=== PATIENT | male | born 1965 | race Caucasian/White ===

== ENCOUNTER 2018-08-11 11:18 | Outpatient (REF) | payer BC, SELFPAY ==
[2018-08-11 18:50] LABS: Cholesterol 203 mg/dL (50-200); Glucose 105 mg/dL (70-100); HDL Cholesterol 48 mg/dL (40-60); LDL CHOLESTEROL 137 mg/dL (<100); Triglyceride 63 mg/dL (30-150)
== END 2018-08-11 11:38 ==
LOC: NCHCN 11:18
PROVIDERS: PCP Nurse Practitioner; Visit Provider Nurse Practitioner
DX: Z13.1 Encounter for screening for diabetes mellitus (principal); Z13.220 Encounter for screening for lipoid disorders
CPT/HCPCS: 80061; 82947; 83721

== ENCOUNTER 2018-10-27 11:08 | Day surgery (SDC) | payer BC, SELFPAY ==
--- NOTE | 2018-10-27 06:59 | W.COLOREPORT ---
Date of service: 10/27/18 Time of Service: 12:58 Colonoscopy Report Date of procedure: 10/27/18 Pre-op diagnosis general: Colon Cancer Screening Post-op diagnosis procedure note: other (Multiple colorectal polyps and mild diverticulosis) Procedure: Colonoscopy with polypectomy by hot snare and hot forceps Surgeon: Dawna Calderón Anesthesia proc note operative: other (General/ ASA 2/Gabriel Harris, ROEL ) Estimated blood loss (mL): 20 Pathology: other (Cecal polyp, ascending colon polyp x6, Hepatic flexure, Transverse colon, Sigmoid and rectum) Complications: None Disposition: same day Indications: Mr. Duncan is a pleasant 52 year old male who was seen in the office for a screening colonoscopy. This will be his first. Risks, benefits and complications have been reviewed. Complications include but are not limited to bleeding, pain, perforation, missed small lesion/polyp, sore throat, aspiration and adverse reaction to the medications. Questions were entertained and answered to their satisfaction and they wished to proceed. No guarantees were given or implied. Prep: Miralax/Dulcolax Procedure Start Time: 12:58 Procedure End Time: 14:22 Retraction Time: 60 Findings: 12 polyps 3 where large and may have cancer in them. Polyps removed with a combination of hot snare and hot forceps Procedure Description: After informed consent was obtained the patient was taken to the procedure room and placed in a left decubitous position. Monitors were applied and a time out was done. The patients name, date of , procedure, allergies to medications and metal in their body was reviewed. The patient was then sedated. Once sedated and comfortable a rectal exam was done. External exam was normal. Internal exam revealed a normal sphincter tone and no palpable masses. The prostate was smooth and normal sized. The scope was then introduced and retro-flexed. No internal hemorrhoids were identified. The scope was then advanced to the cecum without difficulty. The TI and appendiceal orifice were identified. The prep was good. The scope was then slowly retracted over 60 minutes back into the rectum. Polyps were removed with a hot snare in the ascending colon x6, cecum x1, hepatic flexure x1, Transverse colon X1, and Sigmoid colon polyp x1, and a hot forceps was used to remove a rectal polyp. The scope was removed and the patient was woken up and taken back to Same day surgery in stable condition. There was also some mild diverticulosis noted. The patient tolerated the procedure well and there were no immediate complications. Follow up: Follow up will depend on the final pathology
--- NOTE | 2018-10-27 07:01 | W.PM.DSUDISC ---
Discharge Plan Disposition Patient Disposition: HOME Condition: Good Discharge Details Reason For Visit: Colon Cancer Screening Attending Provider: Dawna Calderón Primary Care Provider: Xi Elena Home Meds and New Rx's Prescriptions: Discontinued polyethylene glycol 3350 17 gram/dose powder 238 g PO ONCE Qty: 238 RF: 0 bisacodyl [Dulcolax (bisacodyl)] 5 mg tablet,delayed release (DR/EC) 5 mg PO ONCE Qty: 4 RF: 0 No Action No Known Home Meds RF: 0 Discharge Instructions Instructions: Colonoscopy (DC), Colorectal Polyps (DC) Additional Instructions: Findings: 12 polyps A few of them big and potentially colon cancer Follow up: I will call you with the results and then we will see what the next step is Please call if you develop: fevers >101.5 Nausea or Vomiting Abdominal pain that is not transient DAY SURGERY UNIT POST COLONOSCOPY INSTRUCTIONS 1. Because there will be medication in your system for the next 24 hours, you may feel a little sleepy. Your coordination will be affected. Therefore: a. Do not drive or operate dangerous equipment for 24 hours. b. Do not drink alcohol beverages for 24 hours (not even beer). c. Plan to go home and rest for the day. 2. Generally there are no restrictions on your activity after a day or so has gone by, but you may feel a bit fatigued for a few days. 3 After you arrive home you may have a light meal and return to a normal diet as you can tolerate it without feeling sick to your stomach. 4. After surgery, you may feel pain or discomfort. This should be only transient, but if it persists please contact your doctor. 5. If there are any questions regarding the findings of your procedure, please feel free to contact your doctor. 6. If you are unable to contact your doctor with a problem, contact the hospital at [phone]. 7. Continue all your regular medications unless directed otherwise. I understand the above instructions and have no questions. Signature of Patient or Responsible Adult Escort Date/Time Name of Responsible Adult Escort Signature of Nurse Date/Time Activity:: Activity as Tolerated Diet:: As Tolerated Discharge Orders Discharge Orders: Discharge Order (Routine); Ordered 10/27/18 Ordered By: Dawna Calderón DS: Diagnosis Discharge Diagnosis (1) S/P colonoscopy: Status: Acute (2) Colorectal polyps: Status: Acute
[2018-10-27 11:23] VITALS: BP 140/88; PULSE 71; RESP 16; TEMP 36.6; O2SAT 95
[2018-10-27] MEDS: Lactated Ringers 1,000 ML 80 ML IV (12:07)
--- NOTE | 2018-10-27 13:01 | BOWEL_PTH ---
PATIENT: Al Duncan LOC: [facility] U#:[id number] AGE/SX: 52/M ROOM: RE10/27/[address]: Dawna Calderón MD : [id number] BED: DIS: 10/27/2018 SPEC #: [id number] RECD: 10/27/18 18:22 STATUS: [facility] #: [id number] LAURA: 10/27/18 13:[address]: Dawna Calderón DEPT: Surgical Specimen RECD BY: Karen Mo ENTERED: 10/27/18 18:28 SP TYPE: Bowel OTHR DR: Xi Elena Tissues: 1 - BIOPSY BOWEL 2 - BIOPSY BOWEL 3 - BIOPSY BOWEL 4 - BIOPSY BOWEL 5 - BIOPSY BOWEL 6 - BIOPSY BOWEL 7 - BIOPSY BOWEL 8 - BIOPSY BOWEL 9 - BIOPSY BOWEL Procedures: GROSS AND MICRO LEVEL 4 Comments: [id number]
[2018-10-27] MEDS: Endoscopic Tattoo 5 ML SYR IJ (13:29)
[2018-10-27 15:09] VITALS: BP 139/95; PULSE 62; RESP 16; TEMP 35.8; O2SAT 96
== END 2018-10-27 15:15 | disposition home or self-care (01) ==
LOC: SUR 11:08
PROVIDERS: PCP Nurse Practitioner; Visit Provider Surgery
PROC: 0DJD8ZZ Inspection of Lower Intestinal Tract, Via Natural or Artificial Opening Endoscopic (ICD-10-PCS; CPT 45378; principal; 2018-10-27 12:30)
DX: Z12.11 Encounter for screening for malignant neoplasm of colon (principal); D12.5 Benign neoplasm of sigmoid colon; D12.0 Benign neoplasm of cecum; D12.2 Benign neoplasm of ascending colon; D12.3 Benign neoplasm of transverse colon; D12.8 Benign neoplasm of rectum; K62.1 Rectal polyp
CPT/HCPCS: 45385; 45384; 88305

== ENCOUNTER 2019-02-10 16:22 | Outpatient (CLI) | payer BC, SELFPAY ==
[2019-02-10 18:27] LABS: Ferritin 32 ng/mL (8-388); Folate 14.2 ng/mL (8.6-20.0); Vitamin B12 408 pg/mL (193-986)
== END 2019-02-10 16:42 ==
PROVIDERS: PCP Nurse Practitioner; Visit Provider Internal Medicine Gastroenterology
DX: K51.211 Ulcerative (chronic) proctitis with rectal bleeding (principal); K62.5 Hemorrhage of anus and rectum
CPT/HCPCS: 36415; 82607; 82728; 82746

== ENCOUNTER 2022-01-09 16:07 | Outpatient (REF) | payer OTHER, SELFPAY ==
[2022-01-09 20:30] LABS: HCT 35.7 % (40.0-50.0); HGB 12.1 g/dL (13.5-17.5); MCH 29.7 pg (27.0-33.0); MCHC 33.9 % (32.0-36.0); MCV 88 fL (80-95); MPV 10.5 fL (8.0-11.0); Platelet Count 304 10^3/uL (130-400); RBC 4.08 10^6/uL (4.36-5.78); RDW 13.8 % (11.8-14.1); RDW-SD 44.5 fL; WBC 5.27 10^3/uL (4.4-10.8)
[2022-01-09 20:38] LABS: Iron 37 ug/dL (65-175); Total Iron Binding Capacity 365 ug/dL (250-450); Transferrin Sat 10 % (20-55)
[2022-01-09 20:44] LABS: Hemoglobin A1C 5.9 % (<5.7)
[2022-01-09 20:49] LABS: Calculated LDL 145 mg/dL (<100); Cholesterol 215 mg/dL (<200); HDL Cholesterol 47 mg/dL (40-60); Triglyceride 115 mg/dL (<150)
[2022-01-11 10:04] LABS: Hepatitis C Ab w Rflx HCV PCR Negative (Negative)
== END 2022-01-09 16:08 | disposition home or self-care (01) ==
LOC: NCHCN 16:07
PROVIDERS: PCP Nurse Practitioner; Visit Provider Family Medicine
DX: R53.83 Other fatigue (principal); Z00.00 Encounter for general adult medical examination without abnormal findings; K64.8 Other hemorrhoids; Z11.59 Encounter for screening for other viral diseases
CPT/HCPCS: 80061; 85027; 86803; 83036; 83540; 83550; 84443

== ENCOUNTER 2023-01-28 16:41 | Outpatient (REF) | payer OTHER, SELFPAY ==
[2023-01-28 20:26] LABS: Abs Immature Grans 0.02 10^3/uL (0.0-0.06); Absolute Basophil Count 0.07 10^3/uL (0.0-0.2); Absolute Eosinophil Count 0.14 10^3/uL (0.0-0.7); Absolute Monocyte Count 0.37 10^3/uL (0.1-0.8); Absolute Neutrophil Count 5.86 10^3/uL (1.2-6.7); Basophils % 0.9; Eosinophils % 1.8; HCT 38.1 % (40.0-50.0); Immature Grans % 0.3; Lymphocytes % 18.8; MCHC 34.1 % (32.0-36.0); MCV 91 fL (80-95); MPV 10.6 fL (8.0-11.0); Monocytes % 4.6; Neutrophils % 73.6; Platelet Count 319 10^3/uL (130-400); RDW 13.1 % (11.8-14.1); RDW-SD 43.3 fL; WBC 7.96 10^3/uL (4.4-10.8)
[2023-01-28 20:58] LABS: ALT 20 U/L (16-63); AST 12 U/L (15-37); Albumin 4.2 g/dL (3.4-5.0); Alkaline Phosphatase 70 U/L (46-116); Anion Gap 10.8 mmol/L (3-11); BUN 16 mg/dL (7-18); Bilirubin, Total 0.4 mg/dL (0.2-1.0); CO2 25.2 mmol/L (21.0-32.0); Calcium 9.2 mg/dL (8.5-10.1); Chloride 105 mmol/L (98-107); Estimated GFR 87.78 (mL/min/1.73m2); Glucose 93 mg/dL (74-106); Potassium 4.2 mmol/L (3.5-5.1); Sodium 141 mmol/L (136-145); TSH (W/Ref FT4) 1.31 uIU/mL (0.36-3.74); Total Protein 7.3 g/dL (6.4-8.2)
[2023-01-28 21:14] LABS: Hemoglobin A1C 5.7 % (<5.7)
[2023-01-28 21:54] LABS: Iron 64 ug/dL (65-175); Total Iron Binding Capacity 312 ug/dL (250-450); Transferrin Sat 21 % (20-55)
== END 2023-01-28 16:42 | disposition home or self-care (01) ==
LOC: NCHCN 16:41
PROVIDERS: PCP Nurse Practitioner Family; Visit Provider Family Medicine
DX: R63.4 Abnormal weight loss (principal); R73.03 Prediabetes; D50.9 Iron deficiency anemia, unspecified
CPT/HCPCS: 80053; 83036; 83540; 83550; 84443; 85025

== ENCOUNTER 2023-03-01 07:17 | Day surgery (SDC) | payer OTHER, SELFPAY ==
--- NOTE | 2023-02-28 19:47 | W.PM.DSUDISC ---
Date of service: 03/01/23 Time of Service: 10:00 Discharge Plan Disposition Patient Disposition: Home Condition: Good Discharge Details Reason For Visit: Right inguinal hernia repair Attending Provider: Niko Zafar Primary Care Provider: Al Esteves Home Meds and New Rx's Prescriptions: New tramadol 100 mg tablet 100 mg PO TID PRNQty: 12 0RF Rx Instructions: Take half or 1 full tab up to every 8 hours if needed for severe pain. Do not drive while using this medication. I suggest half a tablet to start since this medication can be a bit strong. Continued psyllium husk 0.52 gram capsule 1.04 g PO DAILY ferrous gluconate 324 mg (37.5 mg iron) tablet 324 mg PO .qod Discharge Instructions Instructions: Inguinal Hernia Repair (DC) Additional Instructions: Al, we were able to fix your hernia today without much difficulty. Like we talked about beforehand, I did implant a permanent mesh to help reduce the chances that this hernia will come back. There can be quite a bit of bruising after inguinal hernia repairs. Please do not be alarmed if that occurs. I recommend alternating Tylenol and ibuprofen to help with pain control in the coming days. I have also provided a prescription for tramadol in the case that the Tylenol and ibuprofen are insufficient. Heating pads and ice packs can also be used at your discretion. You can remove the bandages tomorrow night, and shower with warm soapy water. Please inspect the incision every day. Please let me know if there are any signs of increasing redness, or concerning discharge from the wound. I would like you to restrict her lifting to less than 10 pounds until I see you in the office on the . If you have any questions in the meantime, please do not hesitate to call me at any time. Referrals: Niko Zafar MD [ [facility] STAFF PHYSICIAN] - (March 20) Activity:: No heavy lifting Remove Dressings/Wound Care:: 24 hours Shower/Bathe:: 24 hours Diet:: As Tolerated Discharge Orders Discharge Orders: Discharge Order (Routine); Ordered 02/28/23 Ordered By: Niko Zafar DS: Diagnosis Discharge Diagnosis (1) Right inguinal hernia: Status: Acute Asessment and Plan: Open inguinal herniorrhaphy with mesh Follow-up in my office for outpatient follow-up
--- NOTE | 2023-02-28 19:49 | W.PM.OP ---
Date of service: 03/01/23 Time of Service: 10:08 Operative Note Operative Note DATE OF PROCEDURE: 03/01/23 PRE-OP DIAGNOSIS: Right inguinal hernia PROCEDURE: Open right inguinal hernia repair with mesh SURGEON: Niko Zafar FAMILY PRESERVATION WORKER: Alannah Ramirez ANESTHESIA TYPE: Local By Surgeon and General:No Airway Refer to Anesthesia Record ESTIMATED BLOOD LOSS: 25 PATHOLOGY: none sent COMPLICATIONS: None Patient was transported to: PACU Patient's condition: stable Implants: Large PerFix mesh plug and patch Indications: Al is a 57-year-old male with a right inguinal hernia that has enlarged in size, and become painful. Procedure Description: I began by confirming the correct site with the patient. Next, after induction of general anesthesia, the anesthesia specialist provided real-time ultrasound guided tap block. The surgical site was then prepped and draped in the usual fashion. I began by making an oblique incision over the right inguinal region. I dissected down through the skin to the deep fascia. Next, I incised the fascia along the length of the inguinal canal to the external ring. I then carefully identified the ilioinguinal nerve and sharply divided. Once this was complete, I bluntly dissected the shelving edge of the inguinal ligament down towards the pubic tubercle. Here, I encircled all cord structures with a Philo drain. Next, I began dissecting the specific cord structures. Great care was taken to spare the vas deferens and the blood supply to the testicle. Next, I isolated the hernia sac from the other inguinal structures. I reduced it back to its normal anatomic position. I then used a large mesh plug to obliterate the defect at the internal ring. I fixed in place with interrupted Prolene stitches. Next, I buttressed the posterior floor of the inguinal canal with a large mesh patch. I started by fixing it to the pubic tubercle. Next, I used Prolene sutures to affix it to the shelving edge of the inguinal ligament and the conjoined tendon. Laterally I tacked it to the external oblique fascia and reconstructed an internal ring without any strain on the cord structures. Once this was complete, I irrigated the surgical field. It appeared hemostatic. I then closed the anterior portion of the fascia to reconstruct the front wall of the inguinal canal. I did this with interrupted Vicryl stitches. Once again, I irrigated the surgical field and inspected for hemostasis. Finally, I approximated the superficial fascia and the deep layers of the skin with absorbable suture. Skin was closed with running subcuticular stitches. Bandages were applied, the patient was awakened and transferred to the recovery unit.
[2023-03-01] VITALS (8 sets, daily range): BP systolic 145–177; BP diastolic 78–97; PULSE 43–55; RESP 15–21; TEMP 36.2–36.7; O2SAT 95–100; BMI 23.8
[2023-03-01] MEDS: Celecoxib 200 MG CAP PO (08:05)
[2023-03-01] MEDS: Gabapentin 300 MG CAP 600 MG PO (08:06)
[2023-03-01] MEDS: Acetaminophen 500 MG TAB 1000 MG PO (08:06)
[2023-03-01] MEDS: Lactated Ringers 1,000 ML 80 ML IV (08:25)
--- NOTE | 2023-03-01 08:26 | W.ANESPRE ---
General Info Date of Service Date Performed: 03/01/23 Height: 6 ft 1 in Weight: 81.9 kg Body Mass Index (BMI): 23.8 Surgical Procedure: Operation Date: 03/01/23 09:10 Proposed Procedure Side Surgeon p Herniorrhaphy Inguinal w/Mesh Right Niko Zafar MD Meds Allergies and Home Medications Allergies Allergy/AdvReac Type Severity Reaction Status Date / Time No Known Allergies Allergy Unverified 03/01/23 08:18 Home Medication Medication Instructions Recorded ferrous gluconate 324 mg (37.5 mg 324 mg PO .qod 02/05/23 iron) tablet psyllium husk 0.52 gram capsule 1.04 g PO DAILY 02/05/23 Current Visit Medications: Current Medications Generic Name Dose Route Start Last Admin Trade Name Freq PRN Reason Stop Dose Admin Acetaminophen 1,000 mg 03/01/23 06:00 03/01/23 08:06 Acetaminophen 500 Mg Tab PO 03/01/23 23:59 1,000 mg PREOP FRANCIA Administration Celecoxib 200 mg 03/01/23 06:00 03/01/23 08:05 Celecoxib 200 Mg Cap PO 03/01/23 23:59 200 mg PREOP FRANCIA Administration Gabapentin 600 mg 03/01/23 06:00 03/01/23 08:06 Gabapentin 300 Mg Cap PO 03/01/23 23:59 600 mg PREOP FRANCIA Administration Ringer's Solution 1,000 mls @ 80 mls/hr 03/01/23 06:00 IV 03/01/23 23:59 INFUSION FRANCIA Cefazolin Sodium/Dextrose 2 gm in 50 mls @ 100 mls/hr 03/01/23 06:00 Ancef Duplex IVPB 03/01/23 23:59 PREOP FRANCIA IV Miscellaneous Supplies 1 each 03/01/23 06:00 Iv Access IV 03/01/23 23:59 DIRECTED FRANCIA Morphine Sulfate 2 mg 02/28/23 19:50 Morphine 4 Mg/Ml Syr IVP 03/30/23 19:49 Q1H PRN PRN Sodium Chloride 0 ml 03/01/23 06:00 Normal Saline Flush 10 Ml Syr IV 03/01/23 23:59 PRN PRN Sodium Chloride 0 ml 03/01/23 06:00 Normal Saline 10 Ml Vial IJ 03/01/23 23:59 DIRECTED PRN Sterile Water 0 ml 03/01/23 06:00 Water,Injection,Sterile 10 Ml Vial IJ 03/01/23 23:59 DIRECTED PRN Tramadol HCl 50 mg 02/28/23 19:50 Tramadol 50 Mg Tab PO 03/30/23 19:49 Q6H PRN PRN Pain PFSH Active Problems Active Problems: Problem Status Onset Code Bleeding internal hemorrhoids K64.8 Prediabetes R73.03 Hyperlipidemia E78.5 Abnormal weight loss R63.4 Right inguinal hernia K40.90 Colorectal polyps K63.5 S/P colonoscopy ~10/27/18 Z98.890 Medical History Medical History Tubulovillous adenoma of colon Dystonia of left hand Surgical History Surgical History S/P total left hip arthroplasty Status post hip replacement Right and Left Hx of arthroscopy Right knee Tobacco Smoking/Tobacco Use Status: Current every day Tobacco Type: e-cigarettes Alcohol Alcohol Intake: never Substance Use Substance use: Daily Substance use type: marijuana Details: Vapes and smokes Vital Signs and Lab Results Vital Signs Most Recent Vital Signs in EMR: Most Recent Vital Signs Temp Pulse Resp BP Pulse Ox 36.7 C 55 L 18 145/78 H 97 03/01/23 07:25 03/01/23 07:25 03/01/23 07:25 03/01/23 07:25 03/01/23 07:25 Lab Results Blood Type / Crossmatch: No Data to Display Complete Blood Count: No Data to Display Complete Metabolic Panel: No Data to Display Liver Function Panel: No Data to Display Coagulation Panel: No Data to Display Cardiac Panel: No Data to Display Arterial Blood Gas: No Data to Display Venous Blood Gas: No Data to Display Pancreas Panel: No Data to Display Thyroid Panel: No Data to Display Infectious Disease: No Data to Display Blood Cultures: No Data to Display Toxicology Panel: No Data to Display Anesthesia Assessment and Plan Anesthesia History Personal History: No History of Anesthesia Complications Family History: No Family History of Anesthesia Complications Exercise Tolerance Exercise Tolerance: Metabolic Equivalents>4 Pertinent Negatives Pertinent Negatives: No Symptoms of GERD, No Major Cardiovascular Symptoms or Complaints, No Major Pulmonary Symptoms or Complaints and No History of CVA/TIA Cardiac & Pulmonary Exam Cardiac Exam: Normal S1/S2 Heart Sounds Pulmonary Exam: Clear Bilateral Breath Sounds Implantable Cardiac Device Does patient have a Pacemaker or an ICD?: No Airway Exam Known Difficult Airway: No Mallampati Class: 2 Mouth Opening: Normal (> 3cm) Thyromental Distance: Greater than 3 cm Neck Range of Motion: Full ROM Neck Circumference: Normal Teeth Condition: Normal Dentition ASA Classification ASA Score: ASA 2 Emergency Case?: No NPO Status NPO Status: NPO Clears >2 hours, Solids >8 hours Anesthesia Plan Resuscitation Status: Full Code Anesthesia Technique: General Anesthesia Airway Planned: LMA Pain Management: Surgeon and patient request nerve block Monitors Used: Standard Monitors
[2023-03-01] MEDS: ceFAZolin 2 GM/50 ML BAG IVPB (08:51)
[2023-03-01] MEDS: Bupivacaine 0.25% Pres-Free 30 ML VIAL (09:19)
--- NOTE | 2023-03-01 09:21 | W.ANESNERVE ---
Nerve Block Single Injection Procedure Date and Time Date Performed: 03/01/23 Procedure Start: :02 Location Where Procedure Performed Procedure Location: Operating Room Procedure Stop: :08 Reason Performed: Postoperative Analgesia Requesting Provider: Niko Zafar Timeout Performed Timeout Performed: Yes Monitoring Used ECG, Blood Pressure, SpO2, ETCO2 and See EMR for corresponding vital signs Sterility Sterility: Hand Hygiene, Surgical Cap, Surgical Mask, Sterile Gloves, Sterile Drape/Sheet and Chlorhexidine Sedation Given During Procedure Sedation Given (Indicate Dose Given): No Sedation given Patient Mental Status Patient Mental Status: Performed under general anesthesia Nerve Block 1st Nerve Block: Laterality: Right Block Type: TAP Unilateral Ultrasound Image Saved?: Yes Needle / Catheter Used: 100mm SonoPlex II Local Anesthetic Bolus (Indicate Dose Given): Injected in 3-5ml increments after negative blood aspiration and Bupivacaine 0.25% Dose:: 20 ml Additives (Indicate Dose Given): None Ultrasound: Sterile probe cover and gel used Nerve Stimulator: Not Used Paresthesia: None Procedure Tolerated: No Complications Procedure Outcome: Successful Performed By: Lorraine Penny
[2023-03-01] MEDS: traMADol 50 MG TAB PO (11:40)
--- NOTE | 2023-03-01 11:50 | W.ANESPOSTOP ---
Postoperative Evaluation Date, Time and Location Date Performed: 03/01/23 Time Performed: 11:50 Patient Location: Day Surgery Unit Vital Signs Most Recent Imported Vital Signs: Most Recent Vital Signs Temp Pulse Resp BP Pulse Ox 36.2 C L 53 L 18 162/97 H 100 03/01/23 11:00 03/01/23 11:00 03/01/23 11:00 03/01/23 10:45 03/01/23 11:00 Pain Score Most Recent Pain Score: Most Recent Pain Score Pain Level 0 03/01/23 11:00 Assessment Mental Status: Awake (Alert & Oriented to Patient Baseline) Airway and Respiratory Function: Patent airway with normal (patient baseline) respiratory exam Cardiovascular Function: Hemodynamically Stable Hydration Status: Adequately Hydrated Nausea & Vomiting: No Nausea or Vomiting Pain: Pain is tolerable per patient Peripheral Nerve Block: Regional nerve block not resolved at time of post operative discharge
== END 2023-03-01 12:20 | disposition home or self-care (01) ==
PROVIDERS: PCP Family Medicine; Visit Provider Surgery
PROC: (CPT 49505; principal; 2023-03-01 09:00)
DX: K40.90 Unilateral inguinal hernia, without obstruction or gangrene, not specified as recurrent (principal); F17.290 Nicotine dependence, other tobacco product, uncomplicated; F12.90 Cannabis use, unspecified, uncomplicated
CPT/HCPCS: 49505; 76942; C1781; J0690; J1100; J2001; J2405; J2704

== ENCOUNTER 2024-04-24 13:04 | Outpatient (REF) | payer BC, SELFPAY ==
[2024-04-24 15:32] LABS: Abs Immature Grans 0.01 10^3/uL (0.0-0.06); Absolute Basophil Count 0.08 10^3/uL (0.0-0.2); Absolute Eosinophil Count 0.19 10^3/uL (0.0-0.7); Absolute Lymphocyte Count 1.35 10^3/uL (1.2-3.4); Absolute Monocyte Count 0.28 10^3/uL (0.1-0.8); Absolute Neutrophil Count 4.47 10^3/uL (1.2-6.7); Basophils % 1.3 %; HCT 38.1 % (40.0-50.0); HGB 13.3 g/dL (13.5-17.5); Immature Grans % 0.2 %; Lymphocytes % 21.2 %; MCH 31.8 pg (27.0-33.0); MCHC 34.9 % (32.0-36.0); MCV 91 fL (80-95); MPV 10.2 fL (8.0-11.0); Monocytes % 4.4 %; Neutrophils % 69.9 %; Platelet Count 265 10^3/uL (130-400); RBC 4.18 10^6/uL (4.36-5.78); RDW 13.2 % (11.8-14.1); RDW-SD 44.4 fL; WBC 6.38 10^3/uL (4.4-10.8)
[2024-04-24 15:43] LABS: Iron 51 ug/dL (65-175); Total Iron Binding Capacity 312 ug/dL (250-450); Transferrin Sat 16 % (20-55)
[2024-04-24 15:57] LABS: Ferritin 34 ng/mL (26-388)
== END 2024-04-24 13:05 | disposition home or self-care (01) ==
LOC: NCHCN 13:04
PROVIDERS: PCP Family Medicine; Visit Provider Student in an Organized Health Care Education/Training Program
DX: D64.9 Anemia, unspecified (principal)
CPT/HCPCS: 82728; 83540; 83550; 85025

== ENCOUNTER 2024-10-13 15:30 | Outpatient (REF) | payer BC, SELFPAY ==
[2024-10-13 16:15] LABS: Abs Immature Grans 0.02 10^3/uL (0.0-0.06); Absolute Basophil Count 0.06 10^3/uL (0.0-0.2); Absolute Lymphocyte Count 1.35 10^3/uL (1.2-3.4); Absolute Monocyte Count 0.33 10^3/uL (0.1-0.8); Absolute Neutrophil Count 4.25 10^3/uL (1.2-6.7); Eosinophils % 1.6 %; HCT 38.5 % (40.0-50.0); HGB 12.8 g/dL (13.5-17.5); Immature Grans % 0.3 %; Lymphocytes % 22.1 %; MCHC 33.2 % (32.0-36.0); MCV 93 fL (80-95); MPV 10.1 fL (8.0-11.0); Monocytes % 5.4 %; Neutrophils % 69.6 %; Platelet Count 264 10^3/uL (130-400); RBC 4.13 10^6/uL (4.36-5.78); RDW 13.5 % (11.8-14.1); RDW-SD 46.4 fL; WBC 6.11 10^3/uL (4.4-10.8)
[2024-10-13 17:26] LABS: Calculated LDL 133 mg/dL (<100); Cholesterol 187 mg/dL (<200); Ferritin 29 ng/mL (26-388); HDL Cholesterol 43 mg/dL (>or=40); Triglyceride 57 mg/dL (<150)
[2024-10-13 17:31] LABS: Hemoglobin A1C 5.6 % (<5.7)
[2024-10-13 17:40] LABS: Iron 37 ug/dL (65-175); Total Iron Binding Capacity 304 ug/dL (250-450); Transferrin Sat 12 % (20-55)
== END 2024-10-13 15:31 | disposition home or self-care (01) ==
LOC: NCHCN 15:30
PROVIDERS: PCP Family Medicine; Visit Provider Student in an Organized Health Care Education/Training Program
DX: D64.9 Anemia, unspecified (principal); R73.03 Prediabetes; E78.5 Hyperlipidemia, unspecified
CPT/HCPCS: 80061; 82728; 83036; 83540; 83550; 85025